=== PATIENT | female | born 1970 | race African-American/Black ===

== ENCOUNTER 2019-12-01 01:45 | Emergency (ER) | payer OTHER ==
[~2019-12-01] VITALS: Ht 172.7 cm; Wt 93.0 kg
[2019-12-01] MEDS ORDERED: IBUPROFEN 600MG TABLET PO ONE (03:15)
[2019-12-01 04:05] VITALS: BP 125/67
== END 2019-12-01 04:15 | disposition home or self-care (01) ==
LOC: ER 01:45
DX: K11.20 Sialoadenitis, unspecified (principal)
CPT/HCPCS: 99283